=== PATIENT | male | born 1975 | race Caucasian/White ===

== ENCOUNTER 2025-03-20 14:35 | Inpatient (IN) | payer MEDICAID, OTHER ==
[~2025-03-20] VITALS: Ht 182.9 cm; Wt 55.9 kg
--- NOTE | 2025-03-20 16:19 | ED.PDOC ---
Musculoskeletal HPI Comments 50-year-old male presents with a chief complaint of right hand and elbow swelling. Patient states that he broke his elbow on the right side x 1 week ago. Patient reports that he went to [facility] and was splinted x 4 days ago. Patient mentions that he had a mechanical fall which is how he broke his elbow. Patient mentions that the swelling came on overnight. PMHx: Hypotension, Non-Ambulatory PSHx: Appendectomy, Back Surgery, Neck Surgery, LEFT ELBOW SURGERY ELLISON: RUE PAIN SWELLING HPI: Poor Historian. REVIEW OF SYSTEMS: CONSTITUTIONAL: Denies acute: fever, diaphoresis, chills, generalized weakness. HEAD: Denies acute: headache, photophobia Eyes: Denies acute: Double vision, vision loss, eye pain, eye discharge. EARS: Denies acute: tinnitus, hearing loss, ear discharge, ear pain, THROAT: Denies acute: sore throat, swelling, difficulty swallowing , pain with swallowing, change in voice. NECK: Denies acute: neck pain, neck swelling, stiff neck. HEART: Denies acute : chest pain, palpitations, LUNGS: Denies acute: SOB, wheezing, cough, hemoptysis ABDOMEN: Denies acute: abdominal pain, Nausea, Vomiting, diarrhea, melena , hematemesis, hematochezia SKIN: Denies acute: rash, redness, lesions, itchiness. EXTREMITIES: Denies acute: calf pain, numbness, tingling, weakness, Denies acute: Low back pain. Neuro: Denies acute: focal neurological deficit, motor or sensory focal neurological deficit, tremors, seizure like activity, confusion, dizziness, change in mental status, loss of bowel or bladder function, cauda equina like symptoms. : Denies acute: dysuria, hematuria, flank pain, increase in urinary frequency. PSYCH: Denies acute: hallucination, suicidal ideation, homicidal ideation. PHYSICAL EXAM: General: ----mild----acute distress, awake and alert. Head: normocephalic, atraumatic. Neck: supple, trachea is midline, no swelling. Throat: Normal phonation. Eyes:, no erythema, no purulent discharge, no proptosis, no icterus. Heart: regular rate, regular rhythm, no significant murmur appreciated. Lungs: no apparent respiratory distress, Able to speak in full sentences. No wheezing, no rhonchi, no crackles. No stridors Clear to auscultation bilaterally. Abdomen: non tender to palpation, non distended, soft, no guarding, no rebound, + bowel sounds. Neuro: Awake, Alert, oriented to name, self, situation, follows commands GCS=15. Speech is normal. Skin: no petechia, no purpura, no cyanosis, non-pale, not jaundice. Lower extremities: --no - Pitting edema no deformity, no focal swelling, no calf TTP. Makes eye contact. Evaluation of the area of complaint: Right upper extremity splint in place with Bill wrapping. Noted right hand pitting edema with tenderness to palpation. The proximal part of the splint above the elbow appears to be very tight may be contributing to the swelling. Also noted proximal forearm swelling and tenderness to palpation. Radial pulses palpable. Sensory and motor are present in the distal extremity. I removed. all the Bill wrapping and rewrapped it very loose around the splint until we get imaging studies. ED COURSE: DISCLAIMER: This medical document was created using an electronic medical record system with voice recognition software and computerized dictation system. Although this doc ument has been carefully reviewed, there might still be some phonetic and typographical errors. Occasional wrong-word or "sound-alike" substitutions may have occurred due to the inherent limitations of voice recognition software. These areas are purely typographical due to imperfections of the software programs and do not reflect any compromise in the patient's medical care. Please read the chart carefully and recognize, using context, where these substitutions have occurred. Chief Complaint: Upper Extremity Time Seen by MD: 16:03 Reviewed Notes: Medications, Allergies Allergies: Coded Allergies: Penicillins (Verified Allergy, Unknown, 03/20/25) Information Source: Patient Mode of Arrival: Ambulatory Location: Right Was a procedure done? Was a procedure done?: No Differential Diagnosis EXT Differential Diagnosis: Other (Leg swellingDdx include but not limited to DVT, ischemic limb, pitting edema, volume overload, CHF, cellulitis, hematoma, compartment syndrome, dependent edema, venous stasis.) X-Ray, Labs, Meds, VS Vital Signs Date Time Temp Pulse Resp B/P (MAP) Pulse Ox O2 Delivery O2 Flow Rate FiO2 03/20/25 21:43 97.6 64 18 98/60 (73) 96 97.6 03/20/25 18:48 67 16 98 Room Air* 0 21 03/20/25 18:43 98.1 67 16 103/68 (80) 98 98.1 03/20/25 14:37 98.5 87 17 108/65 98 98.5 Lab Test 03/20/25 18:52 03/20/25 16:24 Range/Units Lactic Acid Level 1.0 0.4-2.0 mmol/L White Blood Count 6.6 4.4-10.8 10^3/uL Red Blood Count 3.84 L 4.5-5.90 10^6/uL Hemoglobin 12.5 L 13.5-17.5 g/dL Hematocrit 37.3 L 41.0-53.0 % Mean Corpuscular Volume 97.2 80.0-100.0 fL Mean Corpuscular Hemoglobin 32.6 H 28.0-32.0 pg Mean Corpuscular Hemoglobin Concent 33.6 32.0-36.0 g/dL Red Cell Distribution Width 15.5 H 11.8-14.3 % Platelet Count 271 140-450 10^3/uL Mean Platelet Volume 8.6 6.9-10.8 fL Neutrophils (%) (Auto) 50.9 37.0-80.0 % Lymphocytes (%) (Auto) 26.3 10.0-50.0 % Monocytes (%) (Auto) 10.7 0.0-12.0 % Eosinophils (%) (Auto) 11.3 H 0.0-7.0 % Basophils (%) (Auto) 0.8 0.0-2.0 % Neutrophils # (Auto) 3.4 1.6-8.6 10 ^3/uL Lymphocytes # (Auto) 1.7 0.4-5.4 10 ^3/uL Monocytes # (Auto) 0.7 0-1.3 10 ^3/uL Eosinophils # (Auto) 0.7 0-0.8 10 ^3/uL Basophils # (Auto) 0.1 0-0.2 10 ^3/uL Nucleated Red Blood Cells 0.0 % Sodium Level 139 136-145 mmol/L Potassium Level 4.4 3.5-5.1 mmol/L Chloride Level 105 98-107 mmol/L Carbon Dioxide Level 28 20-31 mmol/L Anion Gap 6 5-15 Blood Urea Nitrogen 18 9-23 mg/dL Creatinine 0.62 L 0.700-1.30 mg/dL Glomerular Filtration Rate Calc 117 >90 mL/min BUN/Creatinine Ratio 29.0 H 10.0-20.0 Serum Glucose 93 74-106 mg/dL Calcium Level 9.3 8.7-10.4 mg/dL Total Bilirubin 0.2 0.2-1.0 mg/dL Aspartate Amino Transferase (AST) 54 H 13-40 U/L Alanine Aminotransferase (ALT) 50 H 7-40 U/L Alkaline Phosphatase 58 46-116 U/L Creatine Kinase 54 46-171 U/L C-Reactive Protein High Sensitivity 0.11 <1.0 mg/dL Total Protein 7.4 5.7-8.2 g/dL Albumin 3.9 3.2-4.8 g/dL PATIENT: LAW ELLISON ACCT: [id number] UNIT: [id number] : 1975 LOC: ER ROOM / BED: / AGE / SEX: 50 / M ADM STATUS: REG ER SERVICE 1613 ORDERING PHYSICIAN: DEE DEE HARGROVE DO PROCEDURE(s): RELB3 - R ELBOW 3 VIEW XRAY REASON: fall, fracture ORDER NUMBER(s): [id number], ACCESSION NUMBER(s): [id number] CLINICAL INDICATION: fall, fracture TECHNIQUE: 3-view XY R ELBOW 3 VIEW XRAY Comparison: None FINDINGS/IMPRESSION: : Acute fracture of the proximal ulna diaphyseal shaft. Subacute fracture seen more distally of the ulna. Radial head is intact. No elbow dislocation IMPRESSION: 1. Acute comminuted proximal ulnar fracture ATED BY: SREEKANTH ORDOÑEZ MD DICTATED DATE/TIME: 03/20/251733 SIGNED BY: SREEKANTH ORDOÑEZ MD SIGNED DATE/TIME: 03/20/251733 PATIENT: LAW ELLISON ACCT: [id number] UNIT: [id number] : 1975 LOC: ER ROOM / BED: / AGE / SEX: 50 / M ADM STATUS: REG ER SERVICE 1613 ORDERING PHYSICIAN: DEE DEE HARGROVE DO PROCEDURE(s): RUDVT - Rt Upper DVT REASON: pain swelling ORDER NUMBER(s): [id number], ACCESSION NUMBER(s): [id number] CLINICAL HISTORY: pain swelling in the right upper extremity TECHNIQUE: Color and duplex doppler imaging of the right upper extremity veins and right subclavian vein was performed. Vessel compression if possible was also performed. WID: COMPARISON: None FINDINGS: The right internal jugular, axillary, basilic, cephalic, brachial , radial, and ulnar veins are patent and demonstrate normal compressibility and flow. The right subclavian is patent. IMPRESSION: 1. NO SONOGRAPHIC EVIDENCE FOR DEEP VENOUS THROMBOSIS IN THE RIGHT UPPER EXTREMITY VEINS. ATED BY: KATHY SHAH MD DICTATED DATE/TIME: 03/20/251643 SIGNED BY: KATHY SHAH MD SIGNED DATE/TIME: 03/20/251643 PATIENT: LAW ELLISON ACCT: [id number] UNIT: [id number] : 1975 LOC: ER ROOM / BED: / AGE / SEX: 50 / M ADM STATUS: REG ER SERVICE ORDERING PHYSICIAN: DEE DEE HARGROVE DO PROCEDURE(s): RHAN - R HAND 3 VIEW XRAY REASON: swelling/pain ORDER NUMBER(s): [id number], ACCESSION NUMBER(s): [id number] CLINICAL INDICATION: swelling/pain TECHNIQUE: 3 radiographic views of the right hand were obtained. Comparison: None FINDINGS/IMPRESSION: Healed old right 5th metacarpal mid diaphyseal fracture. No acute changes ATED BY: SREEKANTH ORDOÑEZ MD DICTATED DATE/TIME: 03/20/251737 SIGNED BY: SREEKANTH ORDOÑEZ MD SIGNED DATE/TIME: 03/20/251737 PATIENT: LAW ELLISON ACCT: [id number] UNIT: [id number] : 1975 LOC: ER ROOM / BED: / AGE / SEX: 50 / M ADM STATUS: REG ER SERVICE 44 ORDERING PHYSICIAN: DEE DEE HARGROVE DO PROCEDURE(s): RUECT - RT UPPER EXTREMITY WITH CONT REASON: HAND SWELLING/ PAIN ORDER NUMBER(s): [id number], ACCESSION NUMBER(s): [id number] EXAM: CT RT UPPER EXTREMITY WITH CONT INDICATION: HAND SWELLING/ PAIN TECHNIQUE: Axial images of right upper extremity with contrast have been obtained along with coronal and sagittal reformatted images. All CT scans at this facility use dose modulation, iterative reconstruction, and/or weight based dosing when appropriate to reduce radiation dose to as low as reasonably achievable. COMPARISON: XY R HAND 3 VIEW XRAY on DOS: 03/20/25 FINDINGS: BONES: Transversely oriented minimally displaced proximal ulnar fracture. Radial apex angulation with lateral angulation of the distal fragment. Trace adjacent fracture fragment. nondisplaced mid diaphyseal ulnar prior fracture with slight callus formation. Incompletely healed. No radial fracture. MUSCLES: No abnormal attenuation. JOINT SPACES: No joint effusion. TENDONS/LIGAMENTS: Intact. OTHER: Significant surrounding subcutaneous tissue edema. No drainable fluid collection. No focus of arterial extravasation. No area of complete occlusion. Radial and ulnar [place] areas appear patent. IMPRESSION: 1. Transversely oriented minimally displaced proximal ulnar fracture. Radial apex angulation with lateral angulation of the distal fragment. 2. Nondisplaced ulnar prior fracture with slight callus formation. ATED BY: ROCIO BERUMEN MD DICTATED DATE/TIME: 03/20/251950 SIGNED BY: ROCIO BEURMEN MD SIGNED DATE/TIME: 03/20/251950 [place] [address] Ph: [phone] DIAGNOSTIC IMAGING Diagnostic Imaging Report : [id number] Signed PATIENT: LAW ELLISON ACCT: [id number] UNIT: [id number] : 1975 LOC: ER ROOM / BED: / AGE / SEX: 50 / M ADM STATUS: REG ER SERVICE 44 ORDERING PHYSICIAN: DEE DEE HARGROVE DO PROCEDURE(s): RUECT - RT UPPER EXTREMITY WITH CONT REASON: HAND SWELLING/ PAIN ORDER NUMBER(s): [id number], ACCESSION NUMBER(s): [id number] EXAM: CT RT UPPER EXTREMITY WITH CONT INDICATION: HAND SWELLING/ PAIN TECHNIQUE: Axial images of right upper extremity with contrast have been obtained along with coronal and sagittal reformatted images. All CT scans at this facility use dose modulation, iterative reconstruction, and/or weight based dosing when appropriate to reduce radiation dose to as low as reasonably achievable. COMPARISON: XY R HAND 3 VIEW XRAY on DOS: 03/20/25 FINDINGS: BONES: Transversely oriented minimally displaced proximal ulnar fracture. Radial apex angulation with lateral angulation of the distal fragment. Trace adjacent fracture fragment. nondisplaced mid diaphyseal ulnar prior fracture with slight callus formation. Incompletely healed. No radial fracture. MUSCLES: No abnormal attenuation. JOINT SPACES: No joint effusion. TENDONS/LIGAMENTS: Intact. OTHER: Significant surrounding subcutaneous tissue edema. No drainable fluid collection. No focus of arterial extravasation. No area of complete occlusion. Radial and ulnar [place] areas appear patent. IMPRESSION: 1. Transversely oriented minimally displaced proximal ulnar fracture. Radial apex angulation with lateral angulation of the distal fragment. 2. Nondisplaced ulnar prior fracture with slight callus formation. ATED BY: ROCIO BERUMEN MD DICTATED DATE/TIME: 03/20/251950 SIGNED BY: ROCIO BERUMEN MD SIGNED DATE/TIME: 03/20/251950 CC: Time of 1ST Reevaluation: 16:33 Reevaluation 1ST: Unchanged Patient Education/Counseling: Diagnosis, Treatment Family Education/Counseling: No Family Present Comments I would has been the patient for pain control. MDM: patient presented with the above HPI.---right upper extremity pain and known fracture and hand puffiness---workup was initiated. patient was found with the above mentioned diagnosis. the following medications were ordered: please refer to order lists of meds and tests obtained by myself Dr. Hargrove. Patient ED course and VS have been stabilized. Patient has been reassessed in the ED and remained in a stable condition. Pertinent incidental findings were discussed with the patient and/or family. Patient/family voices understanding and is agreeable with plan. Patient has been observed in the ED adequate length of time to insure improvement/stability. Escalation of care considered: Consideration of escalation to observation or admission Patient was ADMITTED to the medicine team for further evaluation and treatment of their presentation. All the reports of any imaging studies that were ordered by myself were reviewed by myself. Departure 1 Departure Time of Disposition: 18:00 Impression: Primary Impression: Fracture of proximal end of right ulna Additional Impression: Swelling of right hand Disposition: ADMITTED INPATIENT Admit to: Tele Condition: Guarded Discharged With: Self Critical Care Note Critical Care Time?: No I personally scribed for DEE DEE HARGROVE DO ([email or web address]) on 03/20/25 at 16:19. Electronically submitted by Gregory Norman ([email or web address]). I personally scribed for DEE DEE HARGROVE DO ([email or web address]) on 03/20/25 at 19:59. Electronically submitted by Gregory Norman ([email or web address]). DEE DEE HARGROVE DO Mar 20, 2025 16:19
[2025-03-20 16:35] LABS: Hematocrit 37.3 % (41.0-53.0); Hemoglobin 12.5 g/dL (13.5-17.5); Mean Corpuscular Hemoglobin 32.6 pg (28.0-32.0); Mean Corpuscular Volume 97.2 fL (80.0-100.0); Nucleated Red Blood Cells % 0.0 %
--- NOTE | 2025-03-20 16:47 | DVH ---
CLINICAL HISTORY: pain swelling in the right upper extremity TECHNIQUE: Color and duplex doppler imaging of the right upper extremity veins and right subclavian v ein was performed. Vessel compression if possible was also performed. WID: COMPARISON: None FINDINGS: The right internal jugular, axillary, basilic, cephalic, brachial , radial, and ulnar veins are larsen nt and demonstrate normal compressibility and flow. The right subclavian is patent. IMPRESSION: 1. NO SONOGRAPHIC EVIDENCE FOR DEEP VENOUS THROMBOSIS IN THE RIGHT UPPER EXTREMITY VEINS.
[2025-03-20 16:48] LABS: Albumin 3.9 g/dL (3.2-4.8); Alkaline Phosphatase 58 U/L (46-116); Anion Gap 6 (5-15); BUN/Creatinine Ratio 29.0 (10.0-20.0); Blood Urea Nitrogen 18 mg/dL (9-23); Calcium 9.3 mg/dL (8.7-10.4); Carbon Dioxide 28 mmol/L (20-31); Chloride 105 mmol/L (98-107); Glucose 93 mg/dL (74-106); Potassium 4.4 mmol/L (3.5-5.1); Sodium 139 mmol/L (136-145); Total Protein 7.4 g/dL (5.7-8.2)
--- NOTE | 2025-03-20 17:36 | DVH ---
CLINICAL INDICATION: fall, fracture TECHNIQUE: 3-view XY R ELBOW 3 VIEW XRAY Comparison: None FINDINGS/IMPRESSION: : Acute fracture of the proximal ulna diaphyseal shaft. Subacute fracture seen more distally of the uln a. Radial head is intact. No elbow dislocation IMPRESSION: 1. Acute comminuted proximal ulnar fracture
[2025-03-20 17:38] LABS: Alanine Aminotransferase 50 U/L (7-40); Bilirubin, Total 0.2 mg/dL (0.2-1.0)
--- NOTE | 2025-03-20 17:41 | DVH ---
CLINICAL INDICATION: swelling/pain TECHNIQUE: 3 radiographic views of the right hand were obtained. Comparison: None FINDINGS/IMPRESSION: Healed old right 5th metacarpal mid diaphyseal fracture. No acute changes
[2025-03-20 18:48] VITALS: PULSE 67; RESP 16; O2SAT 98
[2025-03-20] MEDS: IOHEXOL 300 MG/ML 100ML BOTTLE IJ ONE (19:15)
--- NOTE | 2025-03-20 19:54 | DVH ---
EXAM: CT RT UPPER EXTREMITY WITH CONT INDICATION: HAND SWELLING/ PAIN TECHNIQUE: Axial images of right upper extremity with contrast have been obtained along with coronal and sagittal reformatted images. All CT scans at this facility use dose modulation, iterative reconst ruction, and/or weight based dosing when appropriate to reduce radiation dose to as low as reasonably achievable. COMPARISON: XY R HAND 3 VIEW XRAY on DOS: 03/20/25 FINDINGS: BONES: Transversely oriented minimally displaced proximal ulnar fracture. Radial apex angulation with lateral angulation of the distal fragment. Trace adjacent fracture fragment. nondisplaced mid diaph yseal ulnar prior fracture with slight callus formation. Incompletely healed. No radial fracture. MUSCLES: No abnormal attenuation. JOINT SPACES: No joint effusion. TENDONS/LIGAMENTS: Intact. OTHER: Significant surrounding subcutaneous tissue edema. No drainable fluid collection. No focus of arterial extravasation. No area of complete occlusion. Radial and ulnar [place] areas appear patent. IMPRESSION: 1. Transversely oriented minimally displaced proximal ulnar fracture. Radial apex angulation with lat eral angulation of the distal fragment. 2. Nondisplaced ulnar prior fracture with slight callus formation.
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
[2025-03-20] MEDS ORDERED: ACETAMINOPHEN 325 MG TAB PO PRN (23:00)
[2025-03-20] MEDS ORDERED: NITROGLYCERIN 0.4 MG SL TAB SL PRN (23:00)
[2025-03-20] MEDS ORDERED: DOCUSATE SOD 100 MG CAP PO PRN (23:00)
[2025-03-20] MEDS ORDERED: MORPHINE SULFATE INJ 2 MG/ml SYRG IV PRN (23:00)
[2025-03-20] MEDS ORDERED: ONDANSETRON HCL 4 MG/2 ML VIAL IV PRN (23:00)
[2025-03-20] MEDS: MORPHINE SULFATE INJ 2 MG/ml SYRG IV PRN (23:21)
[2025-03-20] MEDS ORDERED: LORazepam 2MG/ML-1ML VIAL IV PRN (23:30)
[2025-03-20 23:36] LABS: Magnesium 2.0 mg/dL (1.6-2.6); Triglycerides 79.0 mg/dL (< 150)
[2025-03-20 23:38] LABS: Cholesterol 94.0 mg/dL (< 200)
[2025-03-20] MEDS: SODIUM CHLORIDE 0.9% 1,000 ML IV SCH (23:39)
[2025-03-21 00:05] LABS: HDL Cholesterol 33.0 mg/dL (40-59)
--- NOTE | 2025-03-21 01:06 | DVH ---
CHEST RADIOGRAPH Indication: Rule out rib fracture Technique: Frontal and lateral view of the chest was obtained Comparison: None FINDINGS: Lines and Tubes: None Lungs: No evidence of focal consolidation. Suspected small right pleural effusion. No pneumothorax. Cardiomediastinal contours: Unremarkable Bones: Cervical thoracic spinal fixation hardware. Multiple old healed right rib fractures noted susp ected acute to subacute right 5th lateral rib fracture. IMPRESSION: 1. Suspected small right pleural effusion. 2. Suspected acute to subacute right 5th lateral rib fracture within the setting of multiple old heal ed right rib fractures.
--- NOTE | 2025-03-21 03:41 | DVH ---
EXAM: CT HEAD WITHOUT CONTRAST INDICATION: MEchanical fall TECHNIQUE: CT of the head without intravenous contrast. Radiation Dose : 1. Head: CT Dose: CTDI volume is 53.14 mGy. Dose-length product is 1047.34 mGy*cm The dose indicators for CT are the volume Computed Tomography (CT) Dose Index (CTDIvol) and the Dose Length Product (DLP), and are measured in units of mGy and mGy-cm, respectively. These indicators are not patient dose, but values generated from the CT scanner acquisition factors. The report includes radiation exposure data for exposures received during this examination. COMPARISON: None FINDINGS: There is no evidence of acute intracranial hemorrhage, extra-axial collection, mass effect, midline s hift, herniation or hydrocephalus. The ventricles, sulci and cisterns are age appropriate. The shaw-white differentiation is intact. Patchy periventricular and subcortical white matter hypoattenuation is nonspecific but may be related to small vessel ischemic disease. The visualized paranasal sinuses and mastoid air cells are clear. The surrounding soft tissues and osseous structures are unremarkable. IMPRESSION: 1. No acute intracranial abnormality. Radiation optimization: All CT scans at this facility use at least one of these dose optimization emerson hniques: automated exposure control mA and/or kV adjustment per patient size (includes targeted exam s where dose is matched to clinical indication) or iterative reconstruction.
[2025-03-21 04:35] LABS: Cannabinoid Screen, Urine Pos (NEGATIVE)
[2025-03-21 04:56] LABS: Urine Protein, UAD 1+ (Negative)
[2025-03-21 05:04] LABS: Hematocrit 39.5 % (41.0-53.0); Hemoglobin 13.3 g/dL (13.5-17.5); Mean Corpuscular Hemoglobin 32.8 pg (28.0-32.0); Mean Corpuscular Volume 97.5 fL (80.0-100.0)
[2025-03-21 05:17] LABS: Chloride 105 mmol/L (98-107); Potassium 3.5 mmol/L (3.5-5.1); Sodium 140 mmol/L (136-145)
[2025-03-21 05:18] LABS: Anion Gap 6 (5-15); Carbon Dioxide 29 mmol/L (20-31)
[2025-03-21 05:19] LABS: Calcium 9.1 mg/dL (8.7-10.4)
[2025-03-21 05:23] LABS: BUN/Creatinine Ratio 18.6 (10.0-20.0); Blood Urea Nitrogen 11 mg/dL (9-23); Glucose 81 mg/dL (74-106)
[2025-03-21 05:26] LABS: INR 1.08 (0.9-1.15); Partial Thromboplastin Time 29.1 SEC (24.5-34.5); Prothrombin Time 11.4 sec (9.3-11.8)
[2025-03-21 06:53] LABS: Amphetamine Screen, Urine Neg (NEGATIVE); Barbiturate Scree,Urine Neg (NEGATIVE); Benzodiazephine Screen, Urine Neg (NEGATIVE); Opiate Scree,Urine Neg (NEGATIVE); Phencyclidine Screen, Urine Neg (NEGATIVE)
[2025-03-21 06:54] LABS: Cocaine Screen, Urine Neg (NEGATIVE)
[2025-03-21 08:02] LABS: RBC Morphology Normal; Total Cells Counted 100.0 (100)
[2025-03-21] MEDS: ENOXAPARIN SOD 40 MG/0.4 ML SYRINGE SC SCH (10:07)
--- NOTE | 2025-03-21 19:49 | DVHPN2 ---
Subjective Patient is seen, examined, doing well Reviewed: Care Plan Changes from previous H/P or p: No Changes General: Per HPI Objective Vitals Vital Signs Date Time Temp Pulse Resp B/P (MAP) Pulse Ox O2 Delivery O2 Flow Rate FiO2 03/21/25 14:15 97.5 100 17 117/82 (94) 98 97.5 03/21/25 07:41 Room Air* 0 21 Exam GEN: Healthy appearing, well-developed, NAD. HEENT: NC/AT; MMM. CV: RRR, no m/r/g. LUNGS: CTAB, no w/r/c. ABD: Soft, NT/ND, NBS, no masses or organomegaly. EXT: skin Warm, well perfused. no rashes. No clubbing, cyanosis, or edema. R ight arm wrapped in Bill wrap, neurovascularly intact NEURO: Ambulating with no limitations. No focal deficits. Medications Current Medications Medications Dose Ordered Sig/Fabricio Route Start Time Stop Time Status Last Admin Dose Admin Sodium Chloride 1,000 ml @ 60 mls/hr [id number] IV 03/20/25 23:00 Docusate Sodium 100 mg BIDPRN PRN PO 03/20/25 23:00 Acetaminophen 650 mg Q6HP PRN PO 03/20/25 23:00 Ondansetron HCl 4 mg Q4HP PRN IV 03/20/25 23:00 Morphine Sulfate 2 mg Q4HPRN PRN IV 03/20/25 23:00 03/21/25 09:15 2 MG Enoxaparin Sodium 40 mg DAILY SC 03/21/25 10:00 03/21/25 10:07 40 MG Lorazepam 0.5 mg Q6HP PRN IV 03/20/25 23:30 Laboratory Results Laboratory Tests 03/21/25 04:40 Chemistry Test 03/21/25 04:40 Calcium Level 9.1 mg/dL (8.7-10.4) Coagulation Test 03/21/25 04:40 Prothrombin Time 11.4 sec (9.3-11.8) Prothrombin Time INR 1.08 (0.9-1.15) Activated Partial Thromboplast Time 29.1 SEC (24.5-34.5) Urinalysis Test 03/20/25 23:59 Urine Color Yellow (Yellow) Urine Clarity Clear (Clear) Urine pH 6.5 (5.0-9.0) Urine Specific [place] > 1.035 (1.001-1.035) Urine Protein 1+ (Negative) H Urine Ketones Negative (Negative) Urine Blood Negative /uL (Negative) Urine Nitrite Negative (Negative) Urine Bilirubin Negative (Negative) Urine Urobilinogen Normal mg/dL (Negative) Urine Leukocyte Esterase Negative /uL (Negative) Urine RBC 24 /hpf (0 - 3) Urine Microscopic WBC 6 /HPF (0-3) H Urine Squamous Epithelial Cells Few /hpf (<5) Urine Renal Epithelial Cells Few /hpf (None Seen) Urine Calcium Oxalate Crystals Few (None Seen) Urine Bacteria Few /hpf (None Seen) H Urine Mucus Few (None Seen) Urine Glucose Normal mg/dL (Normal) Microbiology Microbiology Date/Time Source Procedure Growth Status 03/20/25 18:54 Blood Blood Culture - Preliminary NO GROWTH AFTER 24 HOURS OF INCUBATION. Resulted Labs and/or images reviewed: Labs reviewed by me, Image(s) reviewed by me Assessment/Plan Assessment/Plan 03/21: Patient is seen, doing okay, no further complaints. Patient is homeless. Ortho consulted waiting for eval. Right ulnar fracture Intravascular volume depletion Anemia Eosinophilia Plan -consult ortho Prn pain control IV fluids Continue diet until eval by ortho Med surge Full code Plan discussed with: Patient Date of Service: Mar 21, 2025 Billing Provider: NINOSKA GIBBS MD Common Visit Codes: [id number] INP/OBS CARE(HIGH) NINOSKA GIBBS MD Mar 21, 2025 19:49
[2025-03-22] VITALS (8 sets, daily range): BP systolic 109–133; BP diastolic 81–95; PULSE 74–85; RESP 17–20; TEMP 97.5–98.3; O2SAT 96–99
[2025-03-22 07:11] LABS: Hematocrit 39.6 % (41.0-53.0); Hemoglobin 13.5 g/dL (13.5-17.5); Mean Corpuscular Hemoglobin 33.2 pg (28.0-32.0); Mean Corpuscular Volume 97.6 fL (80.0-100.0); Nucleated Red Blood Cells % 0.2 %
[2025-03-22 07:30] LABS: Chloride 105 mmol/L (98-107); Potassium 3.6 mmol/L (3.5-5.1); Sodium 142 mmol/L (136-145)
[2025-03-22 07:31] LABS: Anion Gap 8 (5-15); Calcium 9.2 mg/dL (8.7-10.4); Carbon Dioxide 29 mmol/L (20-31)
[2025-03-22 07:36] LABS: BUN/Creatinine Ratio 16.4 (10.0-20.0); Blood Urea Nitrogen 10 mg/dL (9-23)
[2025-03-22 07:46] LABS: Glucose 73 mg/dL (74-106)
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
[2025-03-23 08:48] LABS: Hematocrit 38.6 % (41.0-53.0); Hemoglobin 13.1 g/dL (13.5-17.5); Mean Corpuscular Hemoglobin 33.1 pg (28.0-32.0); Mean Corpuscular Volume 97.3 fL (80.0-100.0); Nucleated Red Blood Cells % 0.1 %
[2025-03-23 09:00] VITALS: BP 105/78; PULSE 69; RESP 19; TEMP 97.6; O2SAT 99
[2025-03-23 13:00] VITALS: BP 107/79; PULSE 77; RESP 19; TEMP 97.7; O2SAT 98
--- NOTE | 2025-03-23 14:58 | DVHDS2 ---
Discharge Summary Date of Admission Mar 20, 2025 at 22:53 Date of Discharge: Mar 23, 2025 Labs/Diagnostic Data: Laboratory Results Test 03/23/25 08:10 03/22/25 06:24 03/21/25 04:40 03/20/25 23:59 White Blood Count 4.9 10^3/uL (4.4-10.8) Red Blood Count 3.97 10^6/uL (4.5-5.90) Hemoglobin 13.1 g/dL (13.5-17.5) Hematocrit 38.6 % (41.0-53.0) Mean Corpuscular Volume 97.3 fL (80.0-100.0) Mean Corpuscular Hemoglobin 33.1 pg (28.0-32.0) Mean Corpuscular Hemoglobin Concent 34.0 g/dL (32.0-36.0) Red Cell Distribution Width 15.4 % (11.8-14.3) Platelet Count 246 10^3/uL (140-450) Mean Platelet Volume 9.0 fL (6.9-10.8) Neutrophils (%) (Auto) 42.1 % (37.0-80.0) Lymphocytes (%) (Auto) 28.6 % (10.0-50.0) Monocytes (%) (Auto) 13.2 % (0.0-12.0) Eosinophils (%) (Auto) 13.8 % (0.0-7.0) Basophils (%) (Auto) 2.3 % (0.0-2.0) Neutrophils # (Auto) 2.1 10 ^3/uL (1.6-8.6) Lymphocytes # (Auto) 1.4 10 ^3/uL (0.4-5.4) Monocytes # (Auto) 0.6 10 ^3/uL (0-1.3) Eosinophils # (Auto) 0.7 10 ^3/uL (0-0.8) Basophils # (Auto) 0.1 10 ^3/uL (0-0.2) Nucleated Red Blood Cells 0.1 % Sodium Level 142 mmol/L (136-145) Potassium Level 3.6 mmol/L (3.5-5.1) Chloride Level 105 mmol/L (98-107) Carbon Dioxide Level 29 mmol/L (20-31) Anion Gap 8 (5-15) Blood Urea Nitrogen 10 mg/dL (9-23) Creatinine 0.61 mg/dL (0.700-1.30) Glomerular Filtration Rate Calc 118 mL/min (>90) BUN/Creatinine Ratio 16.4 (10.0-20.0) Serum Glucose 73 mg/dL (74-106) Calcium Level 9.2 mg/dL (8.7-10.4) Differential Total Cells Counted 100.0 (100) Neutrophils % (Manual) 32 (37.0-80.0) Band Neutrophils % (Manual) 0 Lymphocytes % (Manual) 47 (10.0-50.0) Monocytes % (Manual) 12 (0-12) Eosinophils % (Manual) 9 (0-7) Basophils % (Manual) 0 (0.0-2.0) Metamyelocytes % (manual) 0 Myelocytes % (Manual) 0 Promyelocytes % (Manual) 0 Blast Cells % (Manual) 0 Reactive Lymphocytes 0 Platelet Estimate Adequate Red Blood Cell Morphology Normal Prothrombin Time 11.4 sec (9.3-11.8) Prothrombin Time INR 1.08 (0.9-1.15) Activated Partial Thromboplast Time 29.1 SEC (24.5-34.5) Urine Color Yellow (Yellow) Urine Clarity Clear (Clear) Urine pH 6.5 (5.0-9.0) Urine Specific [place] > 1.035 (1.001-1.035) Urine Protein 1+ (Negative) Urine Ketones Negative (Negative) Urine Blood Negative /uL (Negative) Urine Nitrite Negative (Negative) Urine Bilirubin Negative (Negative) Urine Urobilinogen Normal mg/dL (Negative) Urine Leukocyte Esterase Negative /uL (Negative) Urine RBC 24 /hpf (0 - 3) Urine Microscopic WBC 6 /HPF (0-3) Urine Squamous Epithelial Cells Few /hpf (<5) Urine Renal Epithelial Cells Few /hpf (None Seen) Urine Calcium Oxalate Crystals Few (None Seen) Urine Bacteria Few /hpf (None Seen) Urine Mucus Few (None Seen) Urine Glucose Normal mg/dL (Normal) Urine Opiates Screen Neg (NEGATIVE) Urine Fentanyl Screen Neg (NEGATIVE) Urine Barbiturates Screen Neg (NEGATIVE) Urine Phencyclidine Screen Neg (NEGATIVE) Urine Amphetamines Screen Neg (NEGATIVE) Urine Benzodiazepines Screen Neg (NEGATIVE) Urine Cocaine Screen Neg (NEGATIVE) Urine Cannabinoids Screen Pos (NEGATIVE) Test 8/30/25 18:52 03/20/25 16:24 Lactic Acid Level 1.0 mmol/L (0.4-2.0) Hemoglobin A1c 5.0 % A1C (<5.7) Phosphorus Level 4.0 mg/dL (2.4-5.1) Magnesium Level 2.0 mg/dL (1.6-2.6) Total Bilirubin 0.2 mg/dL (0.2-1.0) Aspartate Amino Transferase (AST) 54 U/L (13-40) Alanine Aminotransferase (ALT) 50 U/L (7-40) Alkaline Phosphatase 58 U/L (46-116) Creatine Kinase 54 U/L (46-171) C-Reactive Protein High Sensitivity 0.11 mg/dL (<1.0) Total Protein 7.4 g/dL (5.7-8.2) Albumin 3.9 g/dL (3.2-4.8) Triglycerides Level 79 mg/dL (< 150) Cholesterol Level 94 mg/dL (< 200) LDL Cholesterol 53 mg/dL (< 100) HDL Cholesterol 33 mg/dL (40-59) Vitamin B12 Level 603 pg/mL (211-911) Vitamin D 25-Hydroxy 20.4 ng/mL (30.0-100) Thyroid Stimulating Hormone (TSH) 0.63 uIU/mL (0.55-4.78) Other Laboratory Tests 03/23/25 08:10 03/22/25 06:24 Brief Hx & Hospital Course: Curtis Ng is a 50 year old male patient with past medical history of multiple traumatic fractures ( wheelchair bound) SP multiple orthopedic surgeries, bipolar/schizophrenia, history methamphetamine abuse, tobacco abuse, who presents to the ED with chief complaint of right upper extremity pain and swelling. Patient reports mechanical fall with posterior loss of consciousness after fall approximately four days ago, he was evaluated in [place] where he was diagnosed with proximal ulna fracture, evaluated by framing specialist who indicated immobilization upper extremity. Due to progressive and persistent pain associated with swelling, patient presented once again to the ER today. 03/21: Patient is seen, doing okay, no further complaints. Patient is homeless. Ortho consulted waiting for eval. 03/22: At 1st visit patient is on the phone, at 2nd visit patient has gone for smoking outside. Ortho is recommending the patient follow up with Orthopedics? Sadi Stanley? As patient has a seen by them. But patient was not operated by anybody else, only spleen. We will continue evaluating patient 1 more day. 03/23: Orthopedics has evaluated and recommends patient follow up outpatient. PCP do workup eosinophilia. Diagnosis: Right ulnar fracture , subacute Intravascular volume depletion Anemia Eosinophilia Plan: -Orthopedics wants patient to follow up with Sadi Stanley orthopedist. Patient to continue splint, follow up with PCP. -Continue pain control, Tylenol 1st line, ibuprofen second-line -Continue other home medications not mentioned above -return to board and care Condition at Discharge: Fair Final Diagnosis/Problems List Right ulnar fracture , subacute Intravascular volume depletion Anemia Eosinophilia Discharge Disposition: Home Discharge Instruct/Medications Diet: Regular Activity: No Restrictions, As Tolerated Follow Up/Referral: Below Medications: Below Discharge Statement: "Patient was advised to return to the ER or call 911 if any headaches, dizziness, shortness of breath, chest pain, abdominal pain, bleeding, fevers, or worsening of medical condition. Patient was counseled about treatment plan, medications, possible side effects, patientverbalized understanding. All questions were answered to the best of my ability. This discharge took greater then 30 minutes in planning, reviewing documentation, counseling the patient, and discussing with other team members." Date of Service: Mar 23, 2025 Billing Provider: NINOSKA GIBBS MD Common Visit Codes: 22634-ZNT/OBS DISCH DAY >30min NINOSKA GIBBS MD Mar 23, 2025 14:58
[2025-03-23 17:00] VITALS: BP 120/97; PULSE 95; RESP 20; TEMP 98.4; O2SAT 97
== END 2025-03-23 16:32 | disposition home or self-care (01) | DRG 342 ==
LOC: ER 14:35 → OVERFLOW 22:53 → CENTRAL 03-22 01:40
PROVIDERS: ADMIT Student in an Organized Health Care Education/Training Program; ATTEND Student in an Organized Health Care Education/Training Program
DX: S52.001A Unspecified fracture of upper end of right ulna, initial encounter for closed fracture (principal); D72.10 Eosinophilia, unspecified; S22.31XA Fracture of one rib, right side, initial encounter for closed fracture; D64.9 Anemia, unspecified; E86.9 Volume depletion, unspecified; F20.9 Schizophrenia, unspecified; R74.01 Elevation of levels of liver transaminase levels; Z79.899 Other long term (current) drug therapy; Z59.00 Homelessness unspecified; Z88.0 Allergy status to penicillin; W18.39XA Other fall on same level, initial encounter; Y93.89 Activity, other specified; Y92.89 Other specified places as the place of occurrence of the external cause; Y99.8 Other external cause status
CPT/HCPCS: 36415; 70450; 71046; 73080; 73130; 73201; 80048; 80053; 80061; 80307; 81001; 82306; 82550; 82607; 83036; 83605; 83735; 84100; 84443; 85007; 85025; 85027; 85610; 85730; 86141; 87040; 93971; 96372; 97163; G0378

== ENCOUNTER 2025-03-24 11:35 | Emergency (ER) | payer MEDICAID ==
[~2025-03-24] VITALS: Ht 195.6 cm; Wt 77.0 kg
--- NOTE | 2025-03-24 16:11 | ED.PDOC ---
Musculoskeletal HPI Comments THIS IS A 50 YEAR-OLD MALE WHO PRESENTS TO THE ED VIA WHEELCHAIR WITH A CHIEF COMPLAINT OF WELLNESS CHECK S/P R DISTAL ULNAR FRACTURE DAYS AGO. PATIENT WAS ADMITTED TO [facility] ON 03/20 FOR THE FRACTURE, WHERE THE FRACTURE WAS WRAPPED. PATIENT RETURNED TO THE ED FOR A POSSIBLE CAST OR RE-WRAP OF THE FRACTURE AGAIN. PATIENT HAS NO FURTHER COMPLAINTS AT THIS TIME AND OTHERWISE DENIES CHEST PAIN, DIZZINESS, HEADACHE, COUGH, FEVER, OR CHILLS. PATIENT IS ALERT, ORIENTED X 4, AND HAS STEADY GAIT. Chief Complaint: Upper Extremity Time Seen by MD: 16:04 Reviewed Notes: Nurses Notes, Medications, Allergies Allergies: Coded Allergies: Penicillins (Verified Allergy, Unknown, 03/20/25) Home Meds No Active Prescriptions or Reported Meds Information Source: Patient Mode of Arrival: Wheelchair Location: Right Extremity Location: Elbow Timing: Days Prehospital treatment: None Severity: Moderate Able to Move Extremity: Yes Pain: Mild, Moderate Hand Dominance: Right Mechanism: Other Circumstances: Fall Onset of Symptoms: After Trauma Symptoms: Pain DVT Risk Factors: NONE Last Tetanus: UTD Associated signs and symptoms: Elbow pain, Hand pain Past Medical History Past Medical History (Other): RIGHT ELBOW FX Surgical History: Denies all surgeries Family History Family History: Reviewed,noncontributory to illness, No family hx of Cancer, No family hx of DM, No family hx of Heart nehal, No family hx of HTN, No family hx ofKidney nehal, No family hx of Liver nehal, No family hx of Lung nehal, No family hx of Stroke Social History Smoker: Non-Smoker Alcohol: Denies ETOH Use Drugs: Denies Drug Use Lives In: Home Constitutional: denies: chills, diaphoresis, fatigue, fever, malaise, sweats, weakness, others EENTM: denies: blurred vision, double vision, ear bleeding, ear discharge, ear drainage, ear pain, ear ringing, eye pain, eye redness, hearing loss, mouth pain, mouth swelling, nasal discharge, nose bleeding, nose congestion, nose pain, photophobia, tearing, throat pain, throat swelling, voice changes, others Respiratory: denies: cough, hemoptysis, orthopnea, SOB at rest, shortness of breath, SOB with excertion, stridor, wheezing, others Cardiovascular: denies: chest pain, dizzy spells, diaphoresis, Dyspnea on exertion, edema, irregular heart beat, left arm pain, lightheadedness, palpitations, PND, syncope, others Gastrointestinal: denies: abdomen distended, abdominal pain, blood streaked bowels, constipated, diarrhea, dysphagia, difficulty swallowing, hematemesis, melena, nausea, poor appetite, poor fluid intake, rectal bleeding, rectal pain, vomiting, others Genitourinary: denies: burning, dysuria, flank pain, frequency, hematuria, incontinence, penile discharge, penile sore, pain, testicle pain, testicle swelling, urgency, others Neurological: denies: dizziness, fainting, headache, left sided numbness, left sided weakness, numbness, paresthesia, pre-existing deficit, right sided numbness, right sided weakness, seizure, speech problems, tingling, tremors, weakness, others Musculoskeletal: reports: joint pain, joint swelling; denies: back pain, gout, muscle pain, muscle stiffness, neck pain, others Integumetry: denies: bruises, change in color, change in hair/nails, dryness, laceration, lesions, lumps, rash, wounds, others Allergic/Immunocompromised: denies: Difficulty Healing, Frequent Infections, Hives, Itching, others Hematologic/Lymphatic: denies: anemia, blood clots, easy bleeding, easy bruising, swollen glands, others Endocrine: denies: excessive hunger, excessive sweating, excessive thirst, excessive urination, flushing, intolerance to cold, intolerance to heat, unexplained weight gain, unexplained weight loss, others Psychiatric: denies: anxiety, bipolar disorder, depression, hopeless, panic disorder, schizophrenia, sleepless, suicidal, others All Other Systems: Reviewed and Negative Physical Exam General Appearance: No Apparent Distress, Normal HEENT: Normal ENT Inspection, PERRL/EOMI, Pharynx Normal, TMs Normal Neck: Full Range of Motion, Non-Tender, Normal, Normal Inspection Respiratory: Chest Non-Tender, Lungs Clear, No Accessory Muscle Use, No Respiratory Distress, Normal Breath Sounds Cardiovascular: No Edema, No JVD, No Murmur, No Gallop, Normal Peripheral Pulses, Regular Rate/Rhythm Breast Exam: Deferred Gastrointestinal: No Organomegaly, Non Tender, No Pulsatile Mass, Normal Bowel Sounds, Soft Genitalia: Deferred Pelvic: Deferred Rectal: Deferred Extremities: Decreased range of motion, No calf tenderness, Normal capillary refill, No pedal edema, Tender (AND MILD SWELLING ON RIGHT POSTERIOR ELBOW, SPLINT IS ON RIGHT ELBOW. 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 Was a procedure done?: No Differential Diagnosis EXT Differential Diagnosis: Fracture, Contusion, Strain, Bursitis, Other (SPLINT CARE. ) X-Ray, Labs, Meds, VS Vital Signs Date Time Temp Pulse Resp B/P (MAP) Pulse Ox O2 Delivery O2 Flow Rate FiO2 03/24/25 16:48 88 18 98 Room Air* 0 21 03/24/25 16:48 97.9 88 18 130/71 (90) 95 97.9 03/24/25 11:37 97.3 120 18 112/76 96 97.3 X-Ray, Labs, Meds, VS Comment EXTERNAL MEDICAL RECORDS REVIEWED: [NONE] INDEPENDENT HISTORIANS: [NONE] SOCIAL DETERMINANTS OF HEALTH: [NONE] LABS ORDERED: NONE REVIEWED AND INTERPRETED RESULTS: NONE IMAGING ORDERED: NONE TREATMENTS ORDERED: PATIENT'S OLD SPLINT WAS REMOVED FROM HIS RIGHT UPPER EXTREMITY. NO REDNESS, SWELLING, OR SIGNS OF COMPARTMENT SYNDROME NOTED. NEUROVASCULAR INTACT. A NEW SPLINT APPLIED TO RIGHT ELBOW. PROCEDURES PERFORMED: NONE CRITICAL CARE TIME: NONE I HAVE DISCUSSED THE PATIENT WITH THE ATTENDING PHYSICIAN, DR. HERRERA AND HE AGREES WITH THE PATIENT'S PLAN OF CARE AND DISPOSITION. BASED ON HISTORY OF PRESENT ILLNESS, AND PHYSICAL EXAM, PATIENT WILL BE DISCHARGED HOME. SHARED DECISION MAKING: DISCUSSED WITH PATIENT THAT THEIR WORKUP WAS NORMAL. PATIENT INSTRUCTED TO FOLLOW UP WITH PRIMARY CARE PROVIDER IN 1-2 DAYS FOR RE- EVALUATION OF SYMPTOMS. PATIENT VERBALIZES UNDERSTANDING TO RETURN TO ED FOR NEW OR WORSENING SYMPTOMS OR IF FOLLOW UP WITH PCP CANNOT BE OBTAINED. PATIENT FEELS COMFORTABLE GOING HOME AT THIS TIME. ALL QUESTIONS ADDRESSED AT TIME OF DISCHARGE. Time of 1ST Reevaluation: 16:25 Reevaluation 1ST: Improved Patient Education/Counseling: Diagnosis, Treatment, Need For Follow Up Family Education/Counseling: No Family Present Medical Screening: No EMC Exist At This Time Departure 1 Departure Time of Disposition: 16:20 Impression: Primary Impression: Fracture follow-up Additional Impression: Right distal ulnar fracture Qualified Codes: S52.601A - Unspecified fracture of lower end of right ulna, initial encounter for closed fracture Disposition: HOME / SELF CARE / HOMELESS Condition: Stable Additional Instructions: FOLLOW-UP WITH PCP IN 1 TO 2 DAYS. TAKE MEDICATIONS PRESCRIBED. RETURN TO ED FOR ANY NEW OR WORSENING SYMPTOMS. e-Prescriptions No Active Prescriptions or Reported Meds Discharged With: Self Critical Care Note Critical Care Time?: No Stability Stability form required: No Heart Score Heart Score: Heart Score Response (Comments) Value History N/A 0 EKG N/A 0 Age N/A 0 Risk Factors N/A 0 Troponin N/A 0 Total 0 I personally scribed for LUCA VARMA ([email or web address]) on 03/24/25 at 16:11. Electronically submitted by Stephanie Umana ([email or web address]). I personally scribed for LUCA VARMA ([email or web address]) on 03/24/25 at 16:18. Electronically submitted by Stephanie Umana ([email or web address]). LUCA VARMA Mar 24, 2025 16:11
[2025-03-24 16:48] VITALS: BP 130/71; PULSE 88; RESP 18; TEMP 97.9; O2SAT 98
== END 2025-03-24 16:40 | disposition home or self-care (01) ==
LOC: ER 11:35
DX: S52.601A Unspecified fracture of lower end of right ulna, initial encounter for closed fracture (principal); Z88.0 Allergy status to penicillin; X58.XXXA Exposure to other specified factors, initial encounter; Y93.89 Activity, other specified; Y92.89 Other specified places as the place of occurrence of the external cause; Y99.8 Other external cause status
CPT/HCPCS: 29105; 29125

== ENCOUNTER 2025-05-09 21:35 | Emergency (ER) | payer MEDICAID ==
[2025-05-09] MEDS: HYDROcodone-ACET 5/325MG TAB PO ONE (02:25)
--- NOTE | 2025-05-09 22:42 | ED.PDOC ---
Musculoskeletal HPI Comments HPI: Poor Historian. 50-year-old male with known history of right forearm fracture status post splinting proximally a month ago. Patient was supposed to follow up with the orthopedic doctor be has not been able to. He states that nobody is picking up the phone. Patient removed his splint today. Patient is not take anything for pain. PMHx: Hypotension, Non-Ambulatory, anemia PSHx: Appendectomy, Back Surgery, Neck Surgery, LEFT ELBOW SURGERY Patient was discharged on March 22, 2025 with the following plan per orthopedic doctor: Plan: -Orthopedics wants patient to follow up with Sadi Stanley orthopedist. Patient to continue splint, follow up with PCP. -Continue pain control, Tylenol 1st line, ibuprofen second-line -Continue other home medications not mentioned above -return to board and care REVIEW OF SYSTEMS: CONSTITUTIONAL: Denies acute: fever, diaphoresis, chills, generalized weakness. HEAD: Denies acute: headache, photophobia Eyes: Denies acute: Double vision, vision loss, eye pain, eye discharge. EARS: Denies acute: tinnitus, hearing loss, ear discharge, ear pain, THROAT: Denies acute: sore throat, swelling, difficulty swallowing , pain with swallowing, change in voice. NECK: Denies acute: neck pain, neck swelling, stiff neck. HEART: Denies acute : chest pain, palpitations, LUNGS: Denies acute: SOB, wheezing, cough, hemoptysis ABDOMEN: Denies acute: abdominal pain, Nausea, Vomiting, diarrhea, melena , hematemesis, hematochezia SKIN: Denies acute: rash, redness, lesions, itchiness. EXTREMITIES: Denies acute: calf pain, numbness, tingling, weakness, Denies acute: Low back pain. Neuro: Denies acute: focal neurological deficit, motor or sensory focal neurological deficit, tremors, seizure like activity, confusion, dizziness, change in mental status, loss of bowel or bladder function, cauda equina like symptoms. : Denies acute: dysuria, hematuria, flank pain, increase in urinary frequency. PSYCH: Denies acute: hallucination, suicidal ideation, homicidal ideation. PHYSICAL EXAM: General: ----mild----acute distress, awake and alert. Head: normocephalic, atraumatic. Neck: supple, trachea is midline, no swelling. Throat: Normal phonation. Eyes:, no erythema, no purulent discharge, no proptosis, no icterus. Heart: regular rate, regular rhythm, no significant murmur appreciated. Lungs: no apparent respiratory distress, Able to speak in full sentences. No wheezing, no rhonchi, no crackles. No stridors Clear to auscultation bilaterally. Abdomen: non tender to palpation, non distended, soft, no guarding, no rebound, + bowel sounds. Neuro: Awake, Alert, oriented to name, self, situation, follows commands GCS=15. Speech is normal. Skin: no petechia, no purpura, no cyanosis, non-pale, not jaundice. Lower extremities: --no - Pitting edema no deformity, no focal swelling, no calf TTP. Makes eye contact. moves all four extremities. Face: no apparent facial droop. Evaluation of the right upper extremity: Tenderness to palpation of the mid forearm with some mild swelling. Patient is neurovascularly intact in the affected extremity. Radial pulses palpable. Sensation and motor are present. Able to thumb oppose with the all his digits. 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 ED COURSE: DISCLAIMER: This medical document was created using an electronic medical record system with voice recognition software and computerized dictation system. Although this document has been carefully reviewed, there might still be some phonetic and typographical errors. Occasional wrong-word or "sound-alike" substitutions may have occurred due to the inherent limitations of voice recognition software. These areas are purely typographical due to imperfections of the software programs and do not reflect any compromise in the patient's medical care. Please read the chart carefully and recognize, using context, where these substitutions have occurred. Chief Complaint: Upper Extremity Time Seen by MD: 22:05 Reviewed Notes: Allergies Allergies: Coded Allergies: Penicillins (Verified Allergy, Unknown, 03/20/25) Home Meds No Active Prescriptions or Reported Meds Information Source: Patient Mode of Arrival: Ambulatory Location: Right Past Medical History Surgical History: Denies all surgeries Family History Family History: Reviewed,noncontributory to illness, No family hx of Cancer, No family hx of DM, No family hx of Heart nehal, No family hx of HTN, No family hx ofKidney nehal, No family hx of Liver nehal, No family hx of Lung nehal, No family hx of Stroke Social History Smoker: Non-Smoker Alcohol: Denies ETOH Use Drugs: Denies Drug Use Lives In: Home Was a procedure done? Was a procedure done?: No Differential Diagnosis EXT Differential Diagnosis: Cellulitis, CHF, Deep Vein Thrombosis, Compartment Syndrome, Fracture, Sprain, Dislocation, Contusion, Strain, Neurovascular injury, Arthritis, Bursitis X-Ray, Labs, Meds, VS Vital Signs Date Time Temp Pulse Resp B/P (MAP) Pulse Ox O2 Delivery O2 Flow Rate FiO2 05/10/25 02:35 97.5 76 16 142/76 (98) 99 97.5 05/10/25 02:35 Room Air* 0 21 05/09/25 21:54 98.0 71 20 101/68 96 98.0 Time of 1ST Reevaluation: 00:00 Reevaluation 1ST: Patient Education/Counseling: Diagnosis, Treatment Family Education/Counseling: Other Comments MDM: patient presented with the above HPI.--right forearm existing fracture----workup was initiated. patient was found with the above mentioned diagnosis. the following medications were ordered: please refer to order lists of meds and tests obtained by myself Dr. Hargrove. Patient ED course and VS have been stabilized. Patient has been reassessed in the ED and remained in a stable condition. Pertinent incidental findings were discussed with the patient and/or family. Patient/family voices understanding and is agreeable with plan. Patient has been observed in the ED adequate length of time to insure improvement/stability. Escalation of care considered: Consideration of escalation to observation or admission Patient's splint that he removed at home was replaced. Patient was DISCHARGED home in a stable condition. All the reports of any imaging studies that were ordered by myself were reviewed by myself. Departure 1 Departure Time of Disposition: 23:18 Impression: Primary Impression: Fracture follow-up Additional Impression: Right forearm fracture Disposition: HOME / SELF CARE / HOMELESS Condition: Stable Additional Instructions: Additional instructions: Please read all instructions provided in this packet carefully. You MUST follow-up with your primary care/family doctor in 1 to 2 days. If you are unable to see your primary care/family doctor, please return to our emergency room for re-assessment and re-evaluation in 1 to 2 days. Return to the emergency room here in our facility or to the nearest ER [facility] if your symptoms change or worsen. CONSULTATIONS: you MUST Follow-up for consultation as soon as possible with: orthopedic doctor at [facility]. PLEASE ARRANGE FOR YOUR BOARD AND CARE TO TAKE IT DIRECTLY THERE. You MUST call the consultants office yourself to make an appointment. You may need to arrange that through your insurance and/or your primary/family doctor. If you are unable to see the business analyst consultant in 1 to 2 days, you must return to our emergency room (or any other ER of your choice) for re-assessment and re- evaluation. Adequate fluid hydration. Although you have been discharged from the Emergency Department, this does not mean that you have a "clean bill of health". No definitive diagnosis for your symptoms has been made today. It is possible that you are in the process of developing a serious illness. This is why you must return to the ED without fail if any new or worsening symptoms develop. Below is a copy of your radiological report for follow up: [place] [id number] Ph: [phone] DIAGNOSTIC IMAGING Diagnostic Imaging Report : [id number] Signed PATIENT: LAW ELLISON ACCT: [id number] UNIT: [id number] : 1975 LOC: ER ROOM / BED: / AGE / SEX: 50 / M ADM STATUS: REG ER SERVICE 04 ORDERING PHYSICIAN: DEE DEE HARGROVE DO PROCEDURE(s): RFOR - R FOREARM XRAY REASON: remote fracture, fall ORDER NUMBER(s): [id number], ACCESSION NUMBER(s): [id number] CLINICAL INDICATION: remote fracture, fall TECHNIQUE: XY R FOREARM XRAY Comparison: XY R HAND 3 VIEW XRAY on DOS: 03/20/25, XY R ELBOW 3 VIEW XRAY on DOS: 03/20/25 FINDINGS/IMPRESSION: : Moderately displaced acute comminuted fracture of the proximal ulnar diaphysis. Partially healed subacute chronic appearing ulnar mid diaphyseal fracture with callus formation. Moderate associated soft tissue swelling. ATED BY: MARTÍN LOWE MD DICTATED DATE/TIME: 05/09/252306 SIGNED BY: MARTÍN LOWE MD SIGNED DATE/TIME: 05/09/252306 CC: e-Prescriptions No Active Prescriptions or Reported Meds Discharged With: Self Critical Care Note Critical Care Time?: No DEE DEE HARGROVE DO May 09, 2025 22:41
--- NOTE | 2025-05-09 23:10 | DVH ---
CLINICAL INDICATION: remote fracture, fall TECHNIQUE: XY R FOREARM XRAY Comparison: XY R HAND 3 VIEW XRAY on DOS: 03/20/25, XY R ELBOW 3 VIEW XRAY on DOS: 03/20/25 FINDINGS/IMPRESSION: : Moderately displaced acute comminuted fracture of the proximal ulnar diaphysis. Partially healed subacute chronic appearing ulnar mid diaphyseal fracture with callus formation. Moderate associated soft tissue swelling.
[2025-05-10 02:35] VITALS: BP 142/76; PULSE 76; RESP 16; TEMP 97.5; O2SAT 99
== END 2025-05-10 02:39 | disposition home or self-care (01) ==
LOC: ER 21:35
DX: S52.91XA Unspecified fracture of right forearm, initial encounter for closed fracture (principal); Z90.49 Acquired absence of other specified parts of digestive tract; Z88.0 Allergy status to penicillin; X58.XXXA Exposure to other specified factors, initial encounter; Y93.89 Activity, other specified; Y92.89 Other specified places as the place of occurrence of the external cause; Y99.8 Other external cause status
CPT/HCPCS: 29125; 73090

== ENCOUNTER 2025-07-08 16:27 | Emergency (ER) | payer MEDICAID ==
[~2025-07-08] VITALS: Ht 195.6 cm; Wt 81.8 kg
--- NOTE | 2025-07-08 16:57 | ED.PDOC ---
Musculoskeletal HPI Comments 50 year old male CASSANDRA presents to the emergency department for chief complaint of bilateral arm pain onset four days ago. Pt reports that they fell out of a chair and injured his forearm and elbow. In the ED, Pt presents with swelling the L forearm and R forearm. Pt denies associated symptoms like head injury, dizziness, headache, or fever. Pt reports no exacerbating or relieving factors, pt vitals are otherwise stable. Pt denies any other associated symptoms. Chief Complaint: Upper Extremity Time Seen by MD: 16:50 Reviewed Notes: Nurses Notes, Medications, Allergies Allergies: Coded Allergies: Penicillins (Verified Allergy, Unknown, 03/20/25) Home Meds No Active Prescriptions or Reported Meds Information Source: Patient Mode of Arrival: EMS Timing: Days Prehospital treatment: None Able to Move Extremity: Yes Bear Weight: Fully, Limited Pain: Moderate Mechanism: None Onset of Symptoms: Spontaneous Symptoms: Swelling, Pain DVT Risk Factors: NONE Associated signs and symptoms: Forearm pain, Elbow pain Past Medical History Surgical History: Denies all surgeries Family History Family History: Reviewed,noncontributory to illness, No family hx of Cancer, No family hx of DM, No family hx of Heart nehal, No family hx of HTN, No family hx ofKidney nehal, No family hx of Liver nehal, No family hx of Lung nehal, No family hx of Stroke Social History Smoker: Non-Smoker Alcohol: Denies ETOH Use Drugs: Denies Drug Use Lives In: Home Constitutional: denies: chills, diaphoresis, fatigue, fever, malaise, sweats, weakness, others EENTM: denies: blurred vision, double vision, ear bleeding, ear discharge, ear drainage, ear pain, ear ringing, eye pain, eye redness, hearing loss, mouth pain, mouth swelling, nasal discharge, nose bleeding, nose congestion, nose pain, photophobia, tearing, throat pain, throat swelling, voice changes, others Respiratory: denies: cough, hemoptysis, orthopnea, SOB at rest, shortness of breath, SOB with excertion, stridor, wheezing, others Cardiovascular: denies: chest pain, dizzy spells, diaphoresis, Dyspnea on exertion, edema, irregular heart beat, left arm pain, lightheadedness, palpitations, PND, syncope, others Gastrointestinal: denies: abdomen distended, abdominal pain, blood streaked bowels, constipated, diarrhea, dysphagia, difficulty swallowing, hematemesis, melena, nausea, poor appetite, poor fluid intake, rectal bleeding, rectal pain, vomiting, others Genitourinary: denies: burning, dysuria, flank pain, frequency, hematuria, incontinence, penile discharge, penile sore, pain, testicle pain, testicle swelling, urgency, others Neurological: denies: dizziness, fainting, headache, left sided numbness, left sided weakness, numbness, paresthesia, pre-existing deficit, right sided numbness, right sided weakness, seizure, speech problems, tingling, tremors, weakness, others Musculoskeletal: denies: back pain, gout, joint pain, joint swelling, muscle pain, muscle stiffness, neck pain, others Integumetry: denies: bruises, change in color, change in hair/nails, dryness, laceration, lesions, lumps, rash, wounds, others Allergic/Immunocompromised: denies: Difficulty Healing, Frequent Infections, Hives, Itching, others Hematologic/Lymphatic: denies: anemia, blood clots, easy bleeding, easy bruising, swollen glands, others Endocrine: denies: excessive hunger, excessive sweating, excessive thirst, excessive urination, flushing, intolerance to cold, intolerance to heat, unexplained weight gain, unexplained weight loss, others Psychiatric: denies: anxiety, bipolar disorder, depression, hopeless, panic disorder, schizophrenia, sleepless, suicidal, others All Other Systems: Reviewed and Negative Physical Exam General Appearance: No Apparent Distress, Normal HEENT: Normal ENT Inspection, Pharynx Normal, TMs Normal Neck: Full Range of Motion, Non-Tender, Normal, Normal Inspection Respiratory: Chest Non-Tender, Lungs Clear, No Accessory Muscle Use, No Respiratory Distress, Normal Breath Sounds Cardiovascular: No Edema, No JVD, No Murmur, No Gallop, Normal Peripheral Pulses, Regular Rate/Rhythm Breast Exam: Deferred Gastrointestinal: No Organomegaly, Non Tender, No Pulsatile Mass, Normal Bowel Sounds, Soft Genitalia: Deferred Pelvic: Deferred Rectal: Deferred Extremities: No calf tenderness, Normal capillary refill, Normal inspection, Normal range of motion, Non-tender, No pedal edema, Swelling, Other (Swelling of R forearm, Swelling of L elbow) Neurologic: Alert, 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 Fractures are nonacute Patient be discharged home Time of 1ST Reevaluation: 17:20 Reevaluation 1ST: Unchanged Patient Education/Counseling: Diagnosis, Treatment, Need For Follow Up (Follow up with PCP next available appointment) Family Education/Counseling: No Family Present Departure 1 Departure Time of Disposition: 17:59 Impression: Primary Impression: Fracture follow-up Disposition: 01 HOME / SELF CARE / HOMELESS Condition: Stable e-Prescriptions Ibuprofen Micronized (Ibuprofen) 800 Mg Tab 800 MG PO TID PRN, #40 TAB Prov: GLENIS MARTI 07/08/25 Discharged With: Self Critical Care Note Critical Care Time?: No Stability Stability form required: No Heart Score Heart Score: Heart Score Response (Comments) Value History N/A 0 EKG N/A 0 Age N/A 0 Risk Factors N/A 0 Troponin N/A 0 Total 0 I personally scribed for GLENIS MARTI ([email or web address]) on 07/08/25 at 16:57. Electronically submitted by Ade Flores ([facility]). GLENIS MARTI Jul 08, 2025 16:57
--- NOTE | 2025-07-08 17:28 | DVH ---
CLINICAL INDICATION: fall TECHNIQUE: 2 radiographic views of the right forearm were obtained. COMPARISON: XY R FOREARM XRAY on DOS: 05/09/25 FINDINGS/IMPRESSION: Angulated and displaced fracture proximal right ulna. Fracture appears comminuted. Fractures proximally 5-6 cm from the coronoid process of the ulna. There is a 2nd fracture in the mid ulna with callus formation age indeterminate. The more proximal ulnar fracture appears to currently be more displaced than on study of 05/09/2025.
--- NOTE | 2025-07-08 17:31 | DVH ---
CLINICAL INDICATION: fall TECHNIQUE: 2 radiographic views of the left forearm were obtained. COMPARISON: XY R FOREARM XRAY on DOS: 07/08/25, XY R FOREARM XRAY on DOS: 05/09/25 FINDINGS/IMPRESSION: Fracture distal 3rd left ulna with callus formation. Marked deformity of the proximal radius and ulna with large callus formation and bony deformity. No prior studies for comparison
[2025-07-08] MEDS ORDERED: IBUP-1455 PO (18:02)
[2025-07-08] MEDS: MORPHINE SULFATE 4 MG/ML SYR/VIAL IM ONE (18:13)
[2025-07-08 19:28] VITALS: BP 118/89; PULSE 63; RESP 20; TEMP 97.6; O2SAT 97
== END 2025-07-08 22:22 | disposition home or self-care (01) ==
LOC: EDBD 16:27 → ER 16:27
DX: S52.251A Displaced comminuted fracture of shaft of ulna, right arm, initial encounter for closed fracture (principal); Z88.0 Allergy status to penicillin; W07.XXXA Fall from chair, initial encounter; Y93.89 Activity, other specified; Y92.89 Other specified places as the place of occurrence of the external cause; Y99.8 Other external cause status
CPT/HCPCS: 73090; 96372; 99283; J2270